=== PATIENT | male | born 1970 | race Caucasian/White ===

== ENCOUNTER → 2020-07-27 | Outpatient (CLI) | payer BC ==
--- NOTE | 2020-07-27 16:02 | US ---
EXAMINATION TYPE: US kidneys/renal and bladder DATE OF EXAM: 07/27/2020 COMPARISON: NONE CLINICAL HISTORY: R31.29 Microscopic Hematuria. microscopic hematuria, no other symptoms EXAM MEASUREMENTS: Right Kidney: 12.9 x 5.1 x 4.8 cm Left Kidney: 11.7 x 4.8 x 5.5 cm Right Kidney: No hydronephrosis or masses seen Left Kidney: No hydronephrosis or masses seen Bladder: wnl Bilateral Jets seen: yes IMPRESSION: 1. Normal renal ultrasound
== END | disposition home or self-care (01) ==
LOC: RADUSWWP 15:26
PROVIDERS: ATTEND Internal Medicine
DX: R31.29 Other microscopic hematuria (principal)
CPT/HCPCS: 76770

== ENCOUNTER 2020-08-25 12:53 | Emergency (ER) | payer BC ==
[2020-08-25 13:10] VITALS: BP 142/82; PULSE 101; RESP 18; TEMP 97.9
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
[2020-08-25] MEDS ORDERED: KETOROLAC 15 MG/ML 1 ML VIAL IM STA (14:08)
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
== END 2020-08-25 14:43 | disposition home or self-care (01) ==
LOC: EC 12:53
DX: M54.2 Cervicalgia (principal); R51.9 Headache, unspecified; S00.81XD Abrasion of other part of head, subsequent encounter; R20.0 Anesthesia of skin; R20.2 Paresthesia of skin; M54.6 Pain in thoracic spine; F17.200 Nicotine dependence, unspecified, uncomplicated; W22.8XXD Striking against or struck by other objects, subsequent encounter
CPT/HCPCS: 99284; 96372; 72125; 70450; J1885

== ENCOUNTER → 2020-09-29 | Outpatient (CLI) | payer BC ==
--- NOTE | 2020-09-30 08:56 | XR ---
EXAMINATION TYPE: XR shoulder complete RT DATE OF EXAM: 09/29/2020 COMPARISON: NONE HISTORY: Pain TECHNIQUE: Shoulder examined in 3 views FINDINGS: The humeral head articulates with the glenoid. The acromio-clavicular junction is normal. No acute fractures or dislocations are evident. A follow up study can be performed 7-10 days from acute trauma for continued pain. IMPRESSION: 1. Normal three-view right Shoulder
== END | disposition home or self-care (01) ==
LOC: RAD 17:31
PROVIDERS: ATTEND Internal Medicine
DX: M25.511 Pain in right shoulder (principal)

== ENCOUNTER → 2021-01-27 | Outpatient (CLI) | payer BC | END | disposition home or self-care (01) | LOC: LABWHC1 16:26 | PROVIDERS: ATTEND Internal Medicine | DX: Z20.822 Contact with and (suspected) exposure to COVID-19 (principal); J06.9 Acute upper respiratory infection, unspecified | CPT/HCPCS: 87635; C9803 ==